=== PATIENT | male | born 1990 | race Caucasian/White ===

== ENCOUNTER 2025-03-24 14:49 | Emergency (ER) | payer OTHER, SELFPAY ==
[2025-03-24 14:51] VITALS: BP 159/110
[2025-03-24 15:33] LABS: Hematocrit 47.5 % (39.0-52.0); Hemoglobin 16.7 g/dL (13.0-18.0); Mean Corp Hgb Conc. 35.2 g/dL (33.0-37.0); Mean Corpuscular Volume 81.8 fL (80.0-94.0); Nucleated Red Blood Cells % 0 % (-); Platelet Count 251 10^3/uL (130-400); Red Cell Dist. Width 12.8 % (11.5-14.5)
[2025-03-24 15:40] LABS: ALT (SGPT) 37 U/L (0-50); AST (SGOT) 50 U/L (17-59); Albumin 4.7 g/dl (3.5-5.0); Alkaline Phosphatase 57 U/L (38-126); Blood Urea Nitrogen 19 mg/dl (9-20); Calcium 10.0 mg/dl (8.4-10.2); Carbon Dioxide 28 mmol/L (22-30); Chloride 106 mmol/L (98-107); Glucose 103 mg/dl (70-99); Potassium 4.3 mmol/L (3.5-5.1); Sodium 141 mmol/L (135-145); Total Protein 7.8 g/dl (6.3-8.2); eGFR > 60.00
[2025-03-24 15:51] LABS: Troponin I < 0.012 ng/ml
--- NOTE | 2025-03-24 18:33 | ED.GENMED ---
History of Present Illness
General
Chief Complaint: Chest Pain
Source: patient
Exam Limitations: none
Time Seen by Provider: 03/24/25 18:17
Nursing documentation reviewed up to this point in time: agreed with
History of Present Illness
History of Present Illness:
see MDM
Past History
Past History
ED Past Medical History: None
Patient has exhibited threatening behavior?: No
Review of Systems
Review of Systems
Allergies reviewed?: Yes
All Other Systems: Not applicable
Phy Exam
Physical Exam
Physical Exam:
GENERAL: Alert , in no apparent distress
EYE: pupils equal and reactive
NECK: Supple
ENT: o/p clr, mmm.
CARDIAC: Regular rate and rhythm .
chest wall: no reproducible tenderness
LUNGS: Clear breath sounds bilaterally, no acute respiratory distress, no wheezes/rales/rhonchi
ABDOMEN: Soft, without focal tenderness, no r/g, no cvat, normal bowel sounds
NEUROLOGICAL: Alert and oriented, no focal neuro deficits
SKIN: Warm and dry, skin intact.
MUSCULOSKELETAL: No edema, well perfused. neg nik's sign
PSYCH: Normal and appropriate interaction.
Scores
Heart Score for Chest Pain Patients
STEMI patient?: No
History: Slightly or Non-Suspicious
ECG: Normal
Age: </= 45 years
Risk Factors: No Risk Factors
Troponin: >1 - <3 x Normal Limit
Heart Score for Chest Pain Patients: 1
Heart Score Risk: 2.5% MACE over next 6 weeks
Course
Orders/Labs/Results
Orders:
Orders
03/24/25 14:54
Electrocardiogram (*1) Urgent
Reason for Study: Chest Pain
03/24/25 14:55
EKG- Treatment ONCE
03/24/25 15:11
Complete Blood Count/With Diff Urgent
Comprehensive Metabolic Panel Urgent
Lipase Urgent
Comment: ADD ON
Troponin I Urgent
03/24/25 19:00
Add On- LAB Urgent
Tests Added?: lipase
Electrocardiogram (*1) Urgent
Reason for Study: Chest Pain
EKG- Treatment ONCE
03/24/25 19:28
D-Dimer Urgent
Troponin I Urgent
03/24/25 20:31
Chest [CR Chest - 2 Views ] Urgent
Comment:
Reason For Exam: left sided chest pain
Abnormal Lab Results
03/24/25
15:11
MPV 10.7 H fL
(7.4-10.4)
Absolute Monos (auto) 0.7 H 10^3/uL
(0.1-0.6)
Immature Gran % 0.6 H %
(0-0.5)
Monocytes % 10.3 H %
(1.7-9.3)
Glucose 103 H mg/dl
(70-99)
03/24/25 15:11
03/24/25 15:11
Vital Signs
Initial and Last Documented VS:
Initial Vital Signs
Temp Pulse Resp BP Pulse Ox
37.3 C 100 18 159/110 97
03/24/25 14:51 03/24/25 14:51 03/24/25 14:51 03/24/25 14:51 03/24/25 14:51
Last Documented Vital Signs
Temp Pulse Resp BP Pulse Ox
37.3 C 77 13 143/94 94
03/24/25 14:51 03/24/25 20:30 03/24/25 20:15 03/24/25 20:04 03/24/25 20:30
MDM/Problems Addressed
Differential Diagnosis Includes:
see MDM
MDM/Problems Addressed:
Note:
CHIEF COMPLAINT(S)
Chest pain.
HISTORY OF PRESENT ILLNESS
The patient is a 34-year-old male who presents with chest pain described as 'pressure' located in the left chest, first noticed approximately three months ago. The pain has not become severe and is difficult to pinpoint, with occasional radiation to
the back or under the arms. The patient dismisses the possibility of it being due to improper lifting or sleeping positions. The pain becomes noticeable when lying flat and during deep breaths, although he denies coughing. The patient reports
increased fatigue, bloating, and weight gain, impacting his quality of sleep. He has not experienced night sweats, vomiting, or nausea. The patient has a history of hypertension and started taking Losartan three weeks ago. Blood pressures were
previously around 140/90 mmHg but have improved since medication initiation. The patient seeks evaluation due to the persistence of the pain and concerning location
CHRONIC MEDICAL CONDITIONS SIGNIFICANTLY AFFECTING CARE
Hypertension, managed with Losartan.
SOCIAL HISTORY
The patient denies smoking and illicit drug use. He consumes alcohol socially. No family history of heart attacks or blood clots was reported.
MEDICATIONS
Losartan, with the unknown specific dosage started three weeks ago.
REVIEW OF SYSTEMS
- Cardiovascular: Chest pain described as pressure in the left chest, not associated with exertion, and noticeable when lying flat and upon deep breaths.
- Respiratory: No shortness of breath or cough. The patient has a history of asthma that is not currently symptomatic.
- General: Reports fatigue and bloating. No night sweats, vomiting, or nausea.
- Weight: Reports feeling bloated and gaining weight, though he has not tracked specific weight changes.
PHYSICAL EXAM
- Nursing notes reviewed and vital signs reviewed.
- No tenderness when pressure is applied to the chest.
PLAN
To rule out acute emergencies, the following investigations are planned:
1. D-dimer test to rule out blood clot in the lungs.
2. If D-dimer is positive, a CT scan with IV contrast to check pulmonary vasculature.
3. Chest X-ray to evaluate for any visible abnormalities.
4. Additional cardiac markers to rule out coronary issues.
5. Outpatient referral to a senior manager mmcoe for potential echocardiogram to assess heart structure and function.
DIFFERENTIAL DIAGNOSIS
The Differential Diagnosis includes, in no particular order and is not limited to:
1. Atypical angina
2. Musculoskeletal chest pain
3. Pulmonary embolism
4. Gastroesophageal reflux disease (GERD)
5. Costochondritis
6. Pericarditis
7. Panic disorder or anxiety
8. Pleural effusion
9. Myocardial infarction
10. Aortic dissection
34 y/o M intermittent chest discomfort, more pleuritic and tender than exertional
no trauma
no syncope
felt anxious about the symptoms more recently
here well appearing, comfortable
mild tenderness L ches twall
no skin changes
no murmur appreciated
stable vitals
ekg nonischemic NSR
trop x 2 neg, d dimer also neg
cxr indep reviewed, clear
d/c home with outpatient cards f/u.
*Pulse Oximetry
SaO2: 97
Oxygen Mode of Delivery: Room air
Patient hypoxic: no (97)
*Critical Care Note
Total Time (30-74mins, 75-104mins- exclusive of procedures): Not Applicable
ED Attending Note
-
Portions of this chart may have been created with voice recognition software.� Occasional wrong word or��sound alike� substitutions may have occurred due to the inherent limitations of voice recognition software.
Discharge Plan
Departure
Patient Disposition: Home (Routine Discharge)
Date of Disposition: 03/24/25
Time of Disposition: 20:26
Patient with high blood pressure during this ER visit?: No
Condition: Fair
Covid-19: Not Applicable
Discharge Problem:
Chest pain
Instructions: Chest Pain PCP Follow Up
Prescriptions:
No Action
sertraline 50 MG tablet
PO
budesonide-formoterol [Symbicort] 1 PUFF HFA aerosol inhaler
2 puff inhalation R BID
sulfamethoxazole-trimethoprim 1 TABLET tablet
1 tab PO BID Qty: 9 0RF
clindamycin HCl 300 MG capsule
300 mg PO TID Qty: 29 0RF
prednisone 50 mg tablet
50 mg PO DAILY Qty: 5 0RF
albuterol sulfate [ProAir HFA] 90 mcg/actuation HFA aerosol inhaler
1 puff inhalation Q4HPRN PRN (Reason: shortness of breath) Qty: 8.5 0RF
Referrals:
Bernardo Andersen MD [Active, Cardiology] - Follow up in 5-7 days
Ayesha Huber PA-C [Family Provider, Family Practice] - Follow up in 2-3 days
Activity Restrictions/Additional Instructions:
Your workup here was negative for emergent causes for your chest discomfort. He had 2 negative troponin enzymes and a negative D-dimer ruling out a blood clot and a heart attack. Though it is important that you have this followed up, you should
follow-up with your family doctor and be referred to a senior manager mmcoe. I did leave the number for a senior manager mmcoe on your paperwork that you could also call if you do not need a referral. Return to the ER for any worsening or persistent symptoms,
symptoms of shortness of breath, passing out, or any concerns.
Interventions
Interventions:
*Risk Screen - Suicide Last Done: 03/24/25 14:54
*General Assessment Last Done: 03/24/25 18:00
*Neglect/Abuse Screening Last Done: 03/24/25 14:54
*ED- Fall Risk Assessment Last Done: 03/24/25 21:10
*ED COVID-19 Vaccine History Last Done: 03/24/25 21:10
*Nursing Disposition Last Done: 03/24/25 21:10
ED- Cardiac Assessment Last Done: 03/24/25 18:00
Discharge Date and Time
Discharge Date/Time: 03/24/25 21:10
Print Language: [place]
[2025-03-24 19:32] LABS: Lipase 64 U/L (23-300)
[2025-03-24 19:58] LABS: D-Dimer < 0.27 ug/mlFEU (0.00-0.50)
[2025-03-24 20:04] VITALS: BP 143/94
[2025-03-24 20:12] LABS: Troponin I < 0.012 ng/ml
== END 2025-03-24 21:10 | disposition home or self-care (01) ==
LOC: EMR 14:49
PROVIDERS: Emergency Medicine; Physician Assistant; EMERGENCY PHYSICIAN Emergency Medicine; FAMILY PHYSICIAN Student in an Organized Health Care Education/Training Program
DX: R07.89 Other chest pain (principal); I10 Essential (primary) hypertension; Z79.899 Other long term (current) drug therapy
CPT/HCPCS: 99285; 71046; 80053; 83690; 84484; 85025; 85379; 93005

== ENCOUNTER 2025-04-19 12:31 | Emergency (ER) | payer OTHER, SELFPAY ==
[2025-04-19 12:33] VITALS: BP 153/101
--- NOTE | 2025-04-19 14:04 | ED.GENMED ---
History of Present Illness
General
Chief Complaint: Skin Problem
Time Seen by Provider: 04/19/25 13:57
History of Present Illness
History of Present Illness:
34-year-old male presents to the emergency department for evaluation of a painful pustular lesion to be inner posterior calf on the left. It is mildly discomforting he denies known trauma to the area. He is able to ambulate without discomfort.
Notes that just inferior to this is a eczematous rash that he has had for quite some time but does not seem to be responding to topical steroids. No fevers or chills.
Past History
Past History
ED Past Medical History: None
Patient has exhibited threatening behavior?: No
Review of Systems
Review of Systems
Allergies reviewed?: Yes
All Other Systems: ROS reviewed and negative except as documented in HPI and ROS
Phy Exam
Physical Exam
Physical Exam:
GEN: Well appearing, NAD, WDWN
HEENT: Oral mucosa moist, no scleral icterus
Cardiac: Regular rate
Lung: No respiratory distress, no tachypnea
MSK: No gross deformity or injuries
Skin: Good color, no pallor or jaundice. Small pustular lesion to the left posterior calf medially with no active discharge, inferior to this is a diffuse patchy maculopapular exanthem that the patient states is baseline eczema that he has had for
quite some time
Neuro: AO x3, moves all extremities freely
Psych: Calm, cooperative
Course
Vital Signs
Initial and Last Documented VS:
Initial Vital Signs
Temp Pulse Resp BP Pulse Ox
98.6 F 80 18 153/101 97
04/19/25 12:33 04/19/25 12:33 04/19/25 12:33 04/19/25 12:33 04/19/25 12:33
Last Documented Vital Signs
Temp Pulse Resp BP Pulse Ox
98.6 F 80 18 153/101 97
04/19/25 12:33 04/19/25 12:33 04/19/25 12:33 04/19/25 12:33 04/19/25 14:06
MDM/Problems Addressed
MDM/Problems Addressed:
Localized pustular lesion will treat with topical antibiotics
*Pulse Oximetry
SaO2: 97
Oxygen Mode of Delivery: Room air
Patient hypoxic: no
*Critical Care Note
Total Time (30-74mins, 75-104mins- exclusive of procedures): Not Applicable
ED Attending Note
-
Portions of this chart may have been created with voice recognition software.� Occasional wrong word or��sound alike� substitutions may have occurred due to the inherent limitations of voice recognition software.
Discharge Plan
Departure
Patient Disposition: Home (Routine Discharge)
Date of Disposition: 04/19/25
Time of Disposition: 14:04
Patient with high blood pressure during this ER visit?: No
Discharge Problem:
Pustular lesion
Instructions: Bacterial folliculitis
Prescriptions:
New
mupirocin [Centany] 2 % ointment
1 applic topical TID 7 Days Qty: 22 0RF
No Action
sertraline 50 MG tablet
PO
budesonide-formoterol [Symbicort] 1 PUFF HFA aerosol inhaler
2 puff inhalation R BID
sulfamethoxazole-trimethoprim 1 TABLET tablet
1 tab PO BID Qty: 9 0RF
clindamycin HCl 300 MG capsule
300 mg PO TID Qty: 29 0RF
prednisone 50 mg tablet
50 mg PO DAILY Qty: 5 0RF
albuterol sulfate [ProAir HFA] 90 mcg/actuation HFA aerosol inhaler
1 puff inhalation Q4HPRN PRN (Reason: shortness of breath) Qty: 8.5 0RF
Interventions
Interventions:
*Risk Screen - Suicide Last Done: 04/19/25 12:33
*General Assessment Last Done: 04/19/25 12:33
*Neglect/Abuse Screening Last Done: 04/19/25 12:33
*ED- Fall Risk Assessment Last Done: 04/19/25 14:09
*Nursing Disposition Last Done: 04/19/25 14:12
ED-Skin Assessment Last Done: 04/19/25 14:08
Discharge Date and Time
Discharge Date/Time: 04/19/25 14:14
Print Language: MALAY
== END 2025-04-19 14:14 | disposition home or self-care (01) ==
LOC: EMR 12:31
PROVIDERS: EMERGENCY PHYSICIAN Emergency Medicine; FAMILY PHYSICIAN Student in an Organized Health Care Education/Training Program
DX: L98.8 Other specified disorders of the skin and subcutaneous tissue (principal); L30.9 Dermatitis, unspecified; Z88.0 Allergy status to penicillin
CPT/HCPCS: 99283